=== PATIENT | male | born 1955 | race Caucasian/White ===

== ENCOUNTER 2016-08-06 09:04 | Inpatient (IN) | payer MEDICARE, OTHER ==
[~2016-08-06] VITALS: Ht 172.7 cm; Wt 56.2 kg
[~2016-08-06 09:04] MED LIST: GLIM4TAB PO; LACT1CAP39 PO; METF500T4 PO; METR-105 PO; PRED10TA PO; SULF500T8 PO
--- NOTE | 2016-08-06 09:04 | NUR ---
AAOX3, BIBRA 37 FROM [facility] FOR HYPOGLYCEMIA, BS=20MG/DL ROLLER PRINTER OF FURNACE MASON. CPR WAS IN PROGRESS WHEN FURNACE MASON ARRIVED. D10 WAS GIVEN IN THE FIELD. POST BS=82MG/DL ROLLER PRINTER. SKIN IS WARM AND NON DIAPHORETIC. ASSISTED TO HOSPITAL GOWN. PLACED ON MONITOR. IVHL RFA 20G NOTED ROLLER PRINTER. DR ARRIOLA AT BS FOR EVAL.
--- NOTE | 2016-08-06 09:10 | NUR ---
PT HAS RFA #20 IV ACCESS AUTOMOTIVE SERVICE ADVISOR.
--- NOTE | 2016-08-06 09:21 | NUR ---
GRZEGORZ #20 IV ACCESS. BLOOD SAMPLE COLLECTED SENT TO LAB
[2016-08-06] MEDS ORDERED: ALBU18HF2 IH (09:25)
[2016-08-06] MEDS ORDERED: GLIM2TAB2 PO (09:25)
[2016-08-06] MEDS ORDERED: QUET50TA PO (09:25)
[2016-08-06] MEDS ORDERED: LORA1TAB82 PO (09:25)
[2016-08-06] MEDS ORDERED: ESCI20TA PO (09:25)
[2016-08-06] MEDS ORDERED: MESA0.37 PO (09:25)
[2016-08-06 09:26] LABS: BASOPHILS # (AUTO) 0.1 /CMM (0.0-0.2); BASOPHILS % (AUTO) 0.9 % (0.0-2.0); EOSINOPHILS % (AUTO) 0.3 % (0.0-6.0); HEMATOCRIT 33 % (39-51); HEMOGLOBIN 11.7 g/dL (13.5-17.5); LYMPHOCYTES # (AUTO) 0.8 /CMM (0.8-4.8); LYMPHOCYTES % (AUTO) 8.7 % (20.0-44.0); MEAN CORPUSCULAR HEMOGLOBIN 31 PG (26.0-33.0); MEAN CORPUSCULAR HGB CONC 35 g/dl (31.0-36.0); MEAN CORPUSCULAR VOLUME 90 fL (80-96); MONOCYTES # (AUTO) 0.4 /CMM (0.1-1.30); NEUTROPHILS # (AUTO) 7.9 /CMM (1.8-8.9); NEUTROPHILS % (AUTO) 86.1 % (43.0-81.0); PLATELET COUNT (AUTO) 403 /CMM (150-450); RDW COEFFICIENT OF VARIATION 13.5 (11.5-15.0); RED BLOOD CELL COUNT(AUTO) 3.72 MIL/uL (4.5-6.0); WHITE BLOOD COUNT (AUTO) 9.2 K/uL (4.3-11.0)
[2016-08-06 09:32] LABS: CARBON DIOXIDE 29 mmol/L (21-32); CHLORIDE 105 mmol/L (98-107); GLUCOSE 121 mg/dL (74-106); POTASSIUM 3.9 mmol/L (3.5-5.1); SODIUM SERUM 139 mmol/L (136-145); UREA NITROGEN, BLOOD 21 mg/dL (7-18)
[2016-08-06 09:38] LABS: ALANINE AMINOTRANSFERASE 14 U/L (12-78); ALBUMIN 2.9 g/dL (3.4-5.0); ALKALINE PHOSPHATASE 51 U/L (46-116); ASPARTATE AMINOTRANSFERASE 19 U/L (15-37); BILIRUBIN,TOTAL 0.2 mg/dL (0.2-1.0); TOTAL PROTEIN, SERUM 6.8 g/dL (6.4-8.2)
[2016-08-06 09:39] LABS: TROPONIN I < 0.017 ng/mL (0.00-0.056)
--- NOTE | 2016-08-06 10:03 | NUR ---
PT TAKEN TO CT VIA TRYO
[2016-08-06] MEDS ORDERED: DEXTROSE 50%-WATER 50 ML DISP.SYRIN ONE (10:12)
[2016-08-06] MEDS ORDERED: DEXTROSE 50%-WATER 50 ML DISP.SYRIN IV ONE (10:30)
--- NOTE | 2016-08-06 10:51 | NUR ---
report given to Alexander ESPINOZA, continue plan of care
[2016-08-06] MEDS ORDERED: HYDROCODONE/APAP 5/325MG 1 EACH TABLET PO PRN (11:00)
[2016-08-06] MEDS ORDERED: ONDANSETRON HCL/PF 4 MG/2 ML VIAL IVP PRN (11:00)
[2016-08-06] MEDS ORDERED: LORAZEPAM 1 MG TABLET PO PRN (11:00)
[2016-08-06] MEDS ORDERED: ALBUTEROL SULFATE 8 GM HFA.AER.AD IH PRN (11:00)
[2016-08-06] MEDS ORDERED: ACETAMINOPHEN 325 MG TABLET PO PRN (11:00)
[2016-08-06] MEDS ORDERED: ZOLPIDEM TARTRATE 5 MG TABLET PO PRN (11:00)
[2016-08-06] MEDS ORDERED: MAGNESIUM HYDROXIDE 30 ML UDC PO PRN (11:00)
[2016-08-06] MEDS ORDERED: DEXTROSE 50%-WATER 50 ML DISP.SYRIN IV PRN (11:00)
[2016-08-06] MEDS ORDERED: MAG HYDROX/AL HYDROX/SIMETH 30 ML UDC PO PRN (11:00)
[2016-08-06] MEDS ORDERED: Z GUARD REMEDY 2 OZ OINT TP PRN (11:00)
--- NOTE | 2016-08-06 11:15 | NUR ---
meat stock clerknuclear medicine specialist notes Admitted a 61 years old male patient who came in due to hypoglycemia/weakness, alert and oriented x 4, verbally responsive and able to make needs known. IV intact and patent with IVF infusing well. Skin assessment done and pictures taken and filed in the chart. On room air and tolerated well. Dr. Brush aware of the admission orders. Kept patient clean and comfortable in bed, call light with in patient reach, will continue to monitor accordingly.
[2016-08-06] MEDS: BLOOD SUGAR DIAGNOSTIC 1 EACH STRIP IN SCH ×4 (11:30→21:16)
[2016-08-06] MEDS: INSULIN REGULAR, HUMAN 100 UNIT/ML 3 ML VIAL SQ PRN ×4 (11:33→21:24)
[2016-08-06] MEDS ORDERED: IV SET PRIMARY PUMP SET 1 EA INFUS.SET MC ONE (11:58)
[2016-08-06] MEDS: IV D5/ 0.9% NACL 1,000 ML IV PRN (12:17)
[2016-08-06] MEDS ORDERED: MESALAMINE 400 MG CAP PO SCH (13:00)
[2016-08-06] MEDS ORDERED: ALBUTEROL FS 2.5 MG/3 ML VIAL.NEB NEB PRN (13:30)
[2016-08-06 16:00] VITALS: BP 105/66
--- NOTE | 2016-08-06 19:22 | NUR ---
learning center instructor closing notes All needs provided, attended, and anticipated. Kept patient clean and comfortable in bed, call light with in patient reach, will continue to monitor accordingly. Endorsed to next shift RN to continue care. On tele monitor SR with BBB heart rate of 76.
--- NOTE | 2016-08-06 19:30 | NUR ---
MS RN INITIAL NOTE RECEIVED PT WAKE AND ALERT, ORIENTED X3, NO COMPLAINT OF PAIN OR RESPIRATORY DISTRESS NOTE DURING PHYSICAL ASSESSMENT, WILL CONTINUE TO MONITOR CLOSELY.
[2016-08-06 20:00] VITALS: BP_SYST 109; BP_SYST 113; BP_DIAS 67; BP_DIAS 69
[2016-08-06] MEDS ORDERED: ENOXAPARIN SODIUM 40 MG/0.4 ML DISP.SYRIN SQ SCH (21:00)
[2016-08-06] MEDS: MESALAMINE 400 MG CAP PO SCH (21:16)
[2016-08-06] MEDS ORDERED: ESCITALOPRAM OXALATE (10 MG) 10 MG TABLET PO SCH (22:00)
[2016-08-06] MEDS ORDERED: QUETIAPINE FUMARATE 25 MG TABLET PO SCH (22:00)
[2016-08-07] VITALS: BP_SYST 109; BP_DIAS 67; BP_DIAS 81
[2016-08-07] MEDS: BLOOD SUGAR DIAGNOSTIC 1 EACH STRIP IN SCH ×5 (01:22→17:36)
[2016-08-07] MEDS: IV D5/ 0.9% NACL 1,000 ML IV PRN (01:45)
[2016-08-07 04:00] VITALS: BP 110/67
[2016-08-07 07:29] LABS: BASOPHILS % (AUTO) 0.5 % (0.0-2.0); EOSINOPHILS # (AUTO) 0.1 /CMM (0.0-0.7); EOSINOPHILS % (AUTO) 1.2 % (0.0-6.0); HEMATOCRIT 37 % (39-51); HEMOGLOBIN 12.2 g/dL (13.5-17.5); LYMPHOCYTES # (AUTO) 1.2 /CMM (0.8-4.8); LYMPHOCYTES % (AUTO) 14.3 % (20.0-44.0); MEAN CORPUSCULAR HEMOGLOBIN 30 PG (26.0-33.0); MEAN CORPUSCULAR HGB CONC 33 g/dl (31.0-36.0); MEAN CORPUSCULAR VOLUME 90 fL (80-96); MONOCYTES # (AUTO) 0.5 /CMM (0.1-1.30); MONOCYTES % (AUTO) 6.7 % (2.0-12.0); NEUTROPHILS # (AUTO) 6.3 /CMM (1.8-8.9); NEUTROPHILS % (AUTO) 77.3 % (43.0-81.0); PLATELET COUNT (AUTO) 369 /CMM (150-450); RDW COEFFICIENT OF VARIATION 14.3 (11.5-15.0); RED BLOOD CELL COUNT(AUTO) 4.07 MIL/uL (4.5-6.0); WHITE BLOOD COUNT (AUTO) 8.1 K/uL (4.3-11.0)
--- NOTE | 2016-08-07 07:29 | NUR ---
PROFESSOR OF CHEMICAL ENGINEERING CLOSING NOTE PT REMAINED STABLE DURING TYPING BOOKKEEPER, NO SIGNIFICANT CHANGES OF CONDITION NOTED, WILL ENDORSE TO INCOMING NURSE FOR ARIANNE.
[2016-08-07] MEDS ORDERED: PANTOPRAZOLE 40 MG TABLET.DR PO SCH (07:30)
[2016-08-07 07:37] LABS: CALCIUM, SERUM 8.5 mg/dL (8.5-10.1); CREATININE 0.9 mg/dL (0.6-1.3); MAGNESIUM 1.8 mg/dL (1.8-2.4); PHOSPHORUS 2.8 mg/dL (2.5-4.9); POTASSIUM 4.1 mmol/L (3.5-5.1)
[2016-08-07 07:40] LABS: THYROID STIMULATING HORMONE 1.313 uIU/mL (0.358-3.74)
[2016-08-07 08:00] VITALS: BP 116/73
--- NOTE | 2016-08-07 08:00 | NUR ---
MS RN RECEIVED ON BED, AWAKE,ALERT,ORIENTED X3,NOT IN ANY FORM OF DISTRESS, RESPIRATIONS EVEN AND UNLABORED,NO SOB NOTED, LUNGS ARE DIMINISHED, ABDOMEN SOFT, DENIES PAIN AT THIS TIME, BS MONITORED CLOSELY
[2016-08-07] MEDS ORDERED: predniSONE 10 MG TABLET PO SCH (09:00)
--- NOTE | 2016-08-07 09:20 | NUR ---
MS ESPINOZA BREAKFAST SERVED,DUE MEDS GIVEN.TOLERATED WELL.
[2016-08-07] MEDS: MESALAMINE 400 MG CAP PO SCH ×3 (09:47→17:36)
--- NOTE | 2016-08-07 09:59 | NUR ---
WOUND CARE CONSULT: PT INCONTINENT OF STOOL. PT NOTED TO HAVE RASH WITH BLANCHING REDNESS TO SACRAL/BUTTOCKS AREAS WITH SOME PEELING SKIN NOTED. PT IS EXTREMELY BONY. RECOMMENDATIONS MADE FOR SKIN PROTECTION AND CARE OF RASH. ISOFLEX LOW AIRLOSS BED TO BE PLACED. DISCUSSED WITH NURSING STAFF. PT TO BE TURNED AND REPOSITIONED EVERY 2 HRS PT CONDITION PERMITS, HEELS FLOATED. IN AGREEMENT WITH PLAN OF CARE. Addendum: 08/07/16 at 1004 by AYALA DILLARD WNDNU Amended: Links added.
[2016-08-07] MEDS: CLOTRIMAZOLE 1% 15 GM TUBE TP SCH ×2 (10:00→17:38)
--- NOTE | 2016-08-07 11:00 | NUR ---
MS RN WAS SEEN BY PT, WALKS W/ WALKER.
--- NOTE | 2016-08-07 11:50 | NUR ---
MS RN WAS SEEN BY DR. WALSH, WILL BE DISCHARGE TODAY.
[2016-08-07 12:00] VITALS: BP 114/71
--- NOTE | 2016-08-07 13:00 | NUR ---
MS RN BS - 136 - PATIENT REFUSED COVERAGE, BECAUSE IT IS USED TO BE LOW, FROM PREVIOUS SHIFT.
[2016-08-07 16:41] VITALS: BP 114/71
--- NOTE | 2016-08-07 16:44 | NUR ---
08/07/16 PER PT STABLE FOR DC BACK TO [facility] [phone] TODAY, SPOKE WITH MICHALE AT THE FACILITY AND AGREED TO ACCEPT PT TODAY, ARRANGED TRANSPORTATION VIA [facility] AT [id number]. CHARGE NURSE LACHO MADE AWARE. Addendum: 08/07/16 at 1644 by JANNET BANG CMG Amended: Links added.
--- NOTE | 2016-08-07 18:00 | NUR ---
MS ESPINOZA BS - 116 - NO COVERAGE GIVEN.
--- NOTE | 2016-08-07 19:00 | NUR ---
MS RN PATIENT WENT TO [facility], REFUSED TO TAKE PICTURES, THEY JUST DID IT YESTERDAY, AND WILL NOT CHANGE ANYWAY, PER PATIENT.
== END 2016-08-07 19:00 | DRG 637 ==
LOC: ER 09:10 → TELE 10:43 → MED 08-07 10:51
DX: E11.649 Type 2 diabetes mellitus with hypoglycemia without coma (principal); G93.41 Metabolic encephalopathy; K51.90 Ulcerative colitis, unspecified, without complications; A04.7 Enterocolitis due to Clostridium difficile; I10 Essential (primary) hypertension; Z79.84 Long term (current) use of oral hypoglycemic drugs; R55 Syncope and collapse; R79.89 Other specified abnormal findings of blood chemistry; F99 Mental disorder, not otherwise specified
CPT/HCPCS: 36415; 70450-TC; 71010-TC; 80048-TC; 80061-TC; 80076-TC; 82962-TC; 83735-TC; 84100-TC; 84443-TC; 84484-TC; 85025-TC; 87081-TC; 93307-TC; 97001-TC; A4606; J1650; J1815; J7042; Z7610